=== PATIENT | male | born 1985 | race Caucasian/White ===

== ENCOUNTER 2016-09-20 20:41 | Inpatient (IN) | payer OTHER ==
[~2016-09-20] VITALS: Ht 180.3 cm; Wt 106.4 kg
[2016-09-20] MEDS ORDERED: TUMS500C PO (22:35)
[2016-09-20] MEDS ORDERED: NS 1,000 ML IV SCH (23:01)
[2016-09-20] MEDS ORDERED: ONDANSETRON 4MG/2ML VIAL (J2405) IV ONE (23:15)
[2016-09-20] MEDS: MORPHINE 4 MG/ML 1ML SYRINGE IV PRN (23:29)
[2016-09-20 23:36] LABS: BASO % 0.3 % (0.0-1.0); EOS # 0.1 K/mm3 (0.0-0.50); EOS % 0.8 % (0.0-3.0); LARGE UNSTAINED CELL # 0.2 K/mm3 (0.0-0.4); LARGE UNSTAINED CELL % 1.2 % (0.0-4.0); LYMPH # 1.2 K/mm3 (1.5-4.5); LYMPH % 9.6 % (24.0-44.0); MEAN CORPUSCULAR HEMOGLOBIN 30.5 pg (27.0-33.0); MEAN CORPUSCULAR HGB CONC 34.6 g/dl (32.0-36.5); MEAN CORPUSCULAR VOLUME 88.1 fl (80.0-96.0); MONO # 0.6 K/mm3 (0.0-0.8); MONO % 4.4 % (0.0-5.0); NEUTROPHILS # 10.6 K/mm3 (1.8-7.7); NEUTROPHILS % 83.7 % (36.0-66.0); PLATELET COUNT, AUTOMATED 209 k/mm3 (150-450); WHITE BLOOD COUNT 12.6 K/mm3 (4.0-10.0)
[2016-09-20 23:58] LABS: ALBUMIN 4.8 GM/DL (3.2-5.2); ALBUMIN/GLOBULIN RATIO 1.45 (1.00-1.93); ALKALINE PHOSPHATASE 60 U/L (45-117); ALT/SGPT 59 U/L (12-78); ANION GAP 11 MEQ/L (8-16); AST/SGOT 31 U/L (15-37); BILIRUBIN,DIRECT 0.2 MG/DL (0.0-0.2); BILIRUBIN,TOTAL 0.7 MG/DL (0.2-1.0); BLOOD UREA NITROGEN 16 MG/DL (7-18); CALCIUM LEVEL 10.1 MG/DL (8.5-10.1); CARBON DIOXIDE LEVEL 30 MEQ/L (21-32); CHLORIDE LEVEL 98 MEQ/L (98-107); CREATININE FOR GFR 1.15 MG/DL (0.70-1.30); GLOMERULAR FILTRATION RATE > 60.0 (>60); GLUCOSE, FASTING 99 MG/DL (70-105); POTASSIUM SERUM 3.8 MEQ/L (3.5-5.1); SODIUM LEVEL 139 MEQ/L (136-145); TOTAL PROTEIN 8.1 GM/DL (6.4-8.2)
[2016-09-21] MEDS ORDERED: MORPHINE 4 MG/ML 1ML SYRINGE IV ONE ×2 (01:00→04:30)
--- NOTE | 2016-09-21 01:10 | REPUSA ---
CLINICAL HISTORY: Elevated liver enzymes. TECHNIQUE: Realtime sonographic images were obtained in multiple projections. COMMENTS: The liver is demonstrates increased echogenicity compatible with fatty infiltration. No discrete hepa tic mass is seen. There is no intra or extrahepatic biliary ductal dilatation. CBD measures 3.6 mm. The gallbladder is physiologically distended without evidence of calculi. The gallbladder wall is not thickened and ther e is no pericholecystic fluid. There is no abdominal ascites. The right kidney measures 7.2x6.3x6 cm, free of hydronephrosis, calculi, cysts or masses. IMPRESSION: Fatty liver. No acute pathology. Thank you for your kind referral of this patient.
[2016-09-21] MEDS: MORPHINE 4 MG/ML 1ML SYRINGE IV PRN ×5 (01:15→20:10)
--- NOTE | 2016-09-21 01:40 | REPUSA ---
CLINICAL HISTORY: Abdominal pain. TECHNIQUE: Multiple axial, sagittal and coronal CT images were obtained through the abdomen and pelvi s without administration of oral or IV contrast material. COMMENTS: The liver is moderately enlarged with decreased attenuation without mass or defect. There is no intra or extrahepatic biliary ductal dilatation. The spleen is normal. The gallbladder is within normal li mits. The pancreas is of normal contour and attenuation characteristics. There is no evidence of adre nal mass. The kidneys are normal in size, shape and configuration. No renal or ureteral calculi are identified. There is no hydroureter or hydronephrosis. Prior appendectomy. There is partial small bowel obstruction. Transition zone in the right lower quad rant. There is no evidence of abdominal lymphadenopathy. There is no evidence of intrinsic or extrinsic bladder mass. Diffusely thickened bladder. Images of the lung bases show no evidence of pleural or parenchymal mass. There are no pleural effusi ons. The bony structures are free of lytic or blastic lesions. Multilevel degenerative changes are seen in volving the thoracolumbar spine. Scattered calcifications are seen involving the aorta and major branches compatible with atherosclero sis. IMPRESSION: Partial small bowel obstruction. Transition zone in the right lower quadrant. No bowel perforation or pneumatosis intestinalis. Thickened bladder suggestive of cystitis. Minimal free fluid in the pelvis. No bowel perforation or pneumatosis intestinalis. Thank you for your kind referral of this patient.
[2016-09-21] MEDS ORDERED: HYDROmorphone HCL 1 MG/ML SYRINGE (J1170) IV ONE ×2 (02:00→04:45)
[2016-09-21 04:40] VITALS: BP 141/94
[2016-09-21] MEDS: LR 1,000 ML IV SCH ×3 (05:13→22:08)
[2016-09-21] MEDS: MORPHINE 2 MG/ML 1ML SYRINGE IV PRN ×2 (05:23→09:13)
[2016-09-21 05:45] VITALS: BP 140/89
[2016-09-21 10:00] VITALS: BP 150/88
--- NOTE | 2016-09-21 10:32 | HPE ---
DATE OF ADMISSION: 09/21/2016 BRIEF HISTORY OF PRESENT ILLNESS: The patient is a 31-year-old male who presents with abdominal pain acute in onset starting yesterday afternoon, was crampy in nature and was brought to the emergency room for additional recommendations/evaluation. The patient developed some nausea without vomiting. No fevers or chills. Underwent evaluation with labs showing elevated white count of 12.6 and with his crampy abdominal pain in the midline underwent a gallbladder ultrasound which revealed no significant abnormalities and then underwent a CT scan, which showed evidence of partial small bowel obstruction. Had not been complaining of any symptoms. Had normal bowel movement the prior day and no bowel movement yesterday. He has not had a previous bowel obstruction. He has had an open appendectomy in the past. He has not had any fevers, chills. No one else in the family has had any enteritis issues. PAST MEDICAL HISTORY: His past medical history is significant for history of appendicitis. MEDICATIONS: Tums as needed for some mild gastroesophageal (GE) reflux symptoms. Physical exam reveals a 31-year-old male who looks his stated age. HEENT is unremarkable. Neck: Supple without adenopathy. Lungs are clear to auscultation without crackles, wheezes or rhonchi. Heart is regular without murmur. Abdomen is softly distended but mild periumbilical pain is appreciated. No significant guarding or rebound is appreciated, although it is obvious he is wincing with some crampy abdominal pain. His nasogastric (NG) tube is in place but does not seem to be functioning all that well and we will advance this and get a KUB and upright to determine its location. Extremities: Warm, well-perfused. IMPRESSION AND PLAN: The patient has a small bowel obstruction most likely secondary to adhesions from his open appendectomy. My recommendation is that we keep him nothing by mouth, NG tube to suction, IV fluids and plan on followup KUB this morning and then follow-up studies as necessary.
--- NOTE | 2016-09-21 11:05 | REP ---
Acute abdominal series three views including PA chest and supine upright abdomen: Comparison is the CT of the abdomen and pelvis performed earlier this same date. PA chest: There are no comparisons. There is a nasogastric tube with the tip terminating satisfactorily beneath the left hemidiaphragm in the gastric fundus. The lung conde are clear. Cardiac size is normal. The raffy, mediastinum, and bony thorax are unremarkable. There is no free subdiaphragmatic air. There is an intraluminal air-fluid level in the gastric fundus. Impression: Nasogastric tube. Otherwise, negative PA chest. Abdomen, supine and upright views: There are occasional air-fluid levels in bowel loops. The remainder of the bowel loops appear fluid-filled. On the comparison CT there was evidence for small bowel obstruction. Current bowel gas pattern is There are no calcifications. Skeletal structures and soft tissues otherwise are. Sign of Signed by David Canas MD 09/21/2016 10:56 A
[2016-09-21] MEDS: ONDANSETRON 4MG/2ML VIAL (J2405) IV PRN ×2 (11:20→20:09)
[2016-09-21 11:28] LABS: MEAN CORPUSCULAR HEMOGLOBIN 30.8 pg (27.0-33.0); MEAN CORPUSCULAR HGB CONC 34.1 g/dl (32.0-36.5); MEAN CORPUSCULAR VOLUME 90.4 fl (80.0-96.0); WHITE BLOOD COUNT 13.2 K/mm3 (4.0-10.0)
[2016-09-21 12:07] LABS: ALBUMIN 4.1 GM/DL (3.2-5.2); ALBUMIN/GLOBULIN RATIO 1.21 (1.00-1.93); ALKALINE PHOSPHATASE 56 U/L (45-117); ALT/SGPT 51 U/L (12-78); ANION GAP 8 MEQ/L (8-16); AST/SGOT 22 U/L (15-37); BILIRUBIN,TOTAL 0.7 MG/DL (0.2-1.0); BLOOD UREA NITROGEN 12 MG/DL (7-18); CALCIUM LEVEL 9.3 MG/DL (8.5-10.1); CARBON DIOXIDE LEVEL 29 MEQ/L (21-32); CHLORIDE LEVEL 103 MEQ/L (98-107); CREATININE FOR GFR 1.01 MG/DL (0.70-1.30); GLOMERULAR FILTRATION RATE > 60.0 (>60); GLUCOSE, FASTING 109 MG/DL (70-105); POTASSIUM SERUM 3.7 MEQ/L (3.5-5.1); SODIUM LEVEL 140 MEQ/L (136-145); TOTAL PROTEIN 7.5 GM/DL (6.4-8.2)
[2016-09-21 14:00] VITALS: BP 142/82
[2016-09-21 18:00] VITALS: BP 127/75
[2016-09-21 20:40] VITALS: BP 131/80
[2016-09-22] VITALS (7 sets, daily range): BP systolic 115–135; BP diastolic 61–89
[2016-09-22] MEDS: LR 1,000 ML IV SCH ×3 (06:06→22:41)
[2016-09-22 06:48] LABS: MEAN CORPUSCULAR HEMOGLOBIN 30.9 pg (27.0-33.0); MEAN CORPUSCULAR HGB CONC 34.1 g/dl (32.0-36.5); MEAN CORPUSCULAR VOLUME 90.8 fl (80.0-96.0); RED CELL DISTRIBUTION WIDTH 11.8 % (11.5-14.5); WHITE BLOOD COUNT 9.2 K/mm3 (4.0-10.0)
[2016-09-22 07:05] LABS: ANION GAP 6 MEQ/L (8-16); BLOOD UREA NITROGEN 12 MG/DL (7-18); CALCIUM LEVEL 8.7 MG/DL (8.5-10.1); CARBON DIOXIDE LEVEL 29 MEQ/L (21-32); CHLORIDE LEVEL 105 MEQ/L (98-107); CREATININE FOR GFR 1.03 MG/DL (0.70-1.30); GLOMERULAR FILTRATION RATE > 60.0 (>60); GLUCOSE, FASTING 97 MG/DL (70-105); POTASSIUM SERUM 4.1 MEQ/L (3.5-5.1); SODIUM LEVEL 140 MEQ/L (136-145)
[2016-09-23] VITALS (8 sets, daily range): BP systolic 120–142; BP diastolic 70–90
[2016-09-23] MEDS: LR 1,000 ML IV SCH ×3 (06:01→21:20)
[2016-09-23 06:27] LABS: MEAN CORPUSCULAR HEMOGLOBIN 31.9 pg (27.0-33.0); MEAN CORPUSCULAR HGB CONC 35.4 g/dl (32.0-36.5); MEAN CORPUSCULAR VOLUME 90.1 fl (80.0-96.0); RED CELL DISTRIBUTION WIDTH 11.7 % (11.5-14.5); WHITE BLOOD COUNT 9.5 K/mm3 (4.0-10.0)
[2016-09-23 06:37] LABS: ANION GAP 10 MEQ/L (8-16); BLOOD UREA NITROGEN 11 MG/DL (7-18); CARBON DIOXIDE LEVEL 28 MEQ/L (21-32); CHLORIDE LEVEL 102 MEQ/L (98-107); CREATININE FOR GFR 0.91 MG/DL (0.70-1.30); GLOMERULAR FILTRATION RATE > 60.0 (>60); GLUCOSE, FASTING 77 MG/DL (70-105); POTASSIUM SERUM 3.8 MEQ/L (3.5-5.1); SODIUM LEVEL 140 MEQ/L (136-145)
--- NOTE | 2016-09-23 09:04 | REP ---
KUB: Single view. History: Small bowel obstruction. Comparison study September 21, 2016. Findings: A nasogastric tube is seen in the upper abdomen terminating in the right upper quadrant. There are one or two loops of mildly prominent small bowel in the central abdomen. These are improved in caliber. Impression: Bowel gas pattern is somewhat improved. Signed by Santos Wen MD 09/23/2016 09:54 A
[2016-09-23] MEDS ORDERED: KETOROLAC 30 MG/ML VIAL (J1885) IV PRN (13:45)
[2016-09-23] MEDS: CEPACOL LOZENGE PO PRN ×5 (14:13→23:20)
[2016-09-23] MEDS: ACETAMINOPHEN TAB 650MG DOSE (2X325MG) PO PRN (22:42)
[2016-09-24 02:00] VITALS: BP 141/89
[2016-09-24] MEDS: CEPACOL LOZENGE PO PRN ×5 (02:16→20:08)
[2016-09-24] MEDS: LR 1,000 ML IV SCH ×3 (05:22→20:08)
[2016-09-24 06:00] VITALS: BP 139/92
[2016-09-24 06:14] LABS: MEAN CORPUSCULAR HGB CONC 34.7 g/dl (32.0-36.5); MEAN CORPUSCULAR VOLUME 89.2 fl (80.0-96.0); RED CELL DISTRIBUTION WIDTH 11.6 % (11.5-14.5)
[2016-09-24] MEDS: MORPHINE 2 MG/ML 1ML SYRINGE IV PRN (06:25)
[2016-09-24 06:28] LABS: ANION GAP 10 MEQ/L (8-16); BLOOD UREA NITROGEN 16 MG/DL (7-18); CALCIUM LEVEL 9.6 MG/DL (8.5-10.1); CARBON DIOXIDE LEVEL 31 MEQ/L (21-32); CHLORIDE LEVEL 101 MEQ/L (98-107); CREATININE FOR GFR 1.01 MG/DL (0.70-1.30); GLOMERULAR FILTRATION RATE > 60.0 (>60); GLUCOSE, FASTING 79 MG/DL (70-105); POTASSIUM SERUM 3.7 MEQ/L (3.5-5.1); SODIUM LEVEL 142 MEQ/L (136-145)
[2016-09-24] MEDS: MORPHINE 4 MG/ML 1ML SYRINGE IV PRN ×4 (09:32→17:16)
[2016-09-24 10:00] VITALS: BP 134/91
[2016-09-24] MEDS ORDERED: E-Z PAQUE 60% w/v SUSP 355ML BOTTLE As Ordered ONE (10:48)
[2016-09-24 14:00] VITALS: BP 144/89
--- NOTE | 2016-09-24 17:22 | REP ---
UPPER GI SINGLE AIR CONTRAST AND SMALL BOWEL FOLLOW-THROUGH: The procedure was performed under the direct supervision of Dr. Collier. The images were reviewed with Dr. Collier. The saloonkeeper film shows no organomegaly or pathological masses. The intestinal gas pattern is nonspecific. Liquid barium was administered through the nasogastric tube. The stomach is grossly normal. The rugal folds are smooth and regular. There is no evidence of gastritis, neoplasm or ulcer disease. The duodenum is grossly normal. The mucosal folds are smooth and regular. There is no evidence of duodenitis, pancreatitis, peptic ulcer disease or neoplasm. The visualized portion of the proximal small bowel appears normal in course and caliber. The barium column was followed through the small bowel to the level of the terminal ileum. Small bowel transit time is delayed with contrast seen in the cecum at 5 hours and 5 minutes. During fluoroscopy gentle palpation shows all loops are freely movable and pliable. There are no fixed or angulated loops. The small bowel mucosal pattern is normal in course and caliber. There is no transition to suggest a partial small bowel obstruction. Spot filming of terminal ileum shows it to be unremarkable. IMPRESSION: Delayed small bowel transit time, otherwise unremarkable single contrast upper GI and small bowel follow-through examination. 1 minutes and 45 seconds of fluoroscopy time was utilized for this procedure.
[2016-09-24] MEDS: ACETAMINOPHEN TAB 650MG DOSE (2X325MG) PO PRN (21:52)
[2016-09-24 22:00] VITALS: BP 133/84
[2016-09-25 02:00] VITALS: BP 131/77
[2016-09-25] MEDS: LR 1,000 ML IV SCH (05:37)
[2016-09-25] MEDS: CEPACOL LOZENGE PO PRN (05:38)
[2016-09-25 06:00] VITALS: BP 139/90
[2016-09-25 06:01] LABS: MEAN CORPUSCULAR HEMOGLOBIN 30.6 pg (27.0-33.0); MEAN CORPUSCULAR HGB CONC 34.6 g/dl (32.0-36.5); MEAN CORPUSCULAR VOLUME 88.4 fl (80.0-96.0); RED CELL DISTRIBUTION WIDTH 11.5 % (11.5-14.5); WHITE BLOOD COUNT 7.7 K/mm3 (4.0-10.0)
[2016-09-25 06:17] LABS: ANION GAP 10 MEQ/L (8-16); BLOOD UREA NITROGEN 11 MG/DL (7-18); CALCIUM LEVEL 8.7 MG/DL (8.5-10.1); CARBON DIOXIDE LEVEL 24 MEQ/L (21-32); CHLORIDE LEVEL 103 MEQ/L (98-107); CREATININE FOR GFR 0.77 MG/DL (0.70-1.30); GLOMERULAR FILTRATION RATE > 60.0 (>60); GLUCOSE, FASTING 74 MG/DL (70-105); POTASSIUM SERUM 3.8 MEQ/L (3.5-5.1); SODIUM LEVEL 137 MEQ/L (136-145)
[2016-09-25 14:00] VITALS: BP 140/91
[2016-09-25] MEDS: DOCUSATE SODIUM 100 MG CAP PO SCH ×2 (15:00→21:00)
[2016-09-25 16:40] VITALS: BP 138/94
[2016-09-25 20:00] VITALS: BP 133/77
[2016-09-26] VITALS: BP 127/68
[2016-09-26 04:00] VITALS: BP 111/65
[2016-09-26 06:47] LABS: MEAN CORPUSCULAR HEMOGLOBIN 30.5 pg (27.0-33.0); MEAN CORPUSCULAR HGB CONC 34.5 g/dl (32.0-36.5); MEAN CORPUSCULAR VOLUME 88.3 fl (80.0-96.0); RED CELL DISTRIBUTION WIDTH 11.6 % (11.5-14.5); WHITE BLOOD COUNT 5.1 K/mm3 (4.0-10.0)
[2016-09-26 07:03] LABS: ANION GAP 8 MEQ/L (8-16); BLOOD UREA NITROGEN 8 MG/DL (7-18); CARBON DIOXIDE LEVEL 28 MEQ/L (21-32); CHLORIDE LEVEL 104 MEQ/L (98-107); CREATININE FOR GFR 0.92 MG/DL (0.70-1.30); GLOMERULAR FILTRATION RATE > 60.0 (>60); GLUCOSE, FASTING 112 MG/DL (70-105); POTASSIUM SERUM 3.6 MEQ/L (3.5-5.1); SODIUM LEVEL 140 MEQ/L (136-145)
[2016-09-26 08:00] VITALS: BP 141/66
[2016-09-26] MEDS: DOCUSATE SODIUM 100 MG CAP PO SCH (08:15)
== END 2016-09-26 09:30 | disposition home or self-care (01) | DRG 390 ==
LOC: M ED 22:49 → M ED INP 09-21 03:00 → M MSPAV 09-21 04:40 → M PED 09-25 16:40
PROVIDERS: ADMIT Surgery; ATTEND Surgery
DX: K56.5 Intestinal adhesions [bands] with obstruction (postinfection) (principal); K21.9 Gastro-esophageal reflux disease without esophagitis; Z90.49 Acquired absence of other specified parts of digestive tract